=== PATIENT | female | born 1955 | race Caucasian/White ===

== ENCOUNTER 2020-12-13 12:23 | Outpatient (CLI) | payer BC | END 2020-12-13 12:24 | disposition home or self-care (01) | LOC: CSHULT 12:23 | PROVIDERS: ATTEND Urology | DX: N20.0 Calculus of kidney (principal) | CPT/HCPCS: 74018; 76770 ==

== ENCOUNTER 2023-01-30 08:02 | Outpatient (CLI) | payer MEDICARE ==
[2023-01-30] MEDS ORDERED: Iopamidol 300 61% 100 ML VIAL FS ONE (10:21)
== END 2023-01-30 08:03 | disposition home or self-care (01) ==
LOC: CSHCT 08:02
PROVIDERS: ATTEND Obstetrics & Gynecology
DX: R31.9 Hematuria, unspecified (principal); N20.0 Calculus of kidney; N28.9 Disorder of kidney and ureter, unspecified; N85.9 Noninflammatory disorder of uterus, unspecified
CPT/HCPCS: 74178; 82565; Q9967

== ENCOUNTER 2024-01-25 08:20 | Outpatient (CLI) | payer MEDICARE | END 2024-01-25 08:21 | disposition home or self-care (01) | LOC: CSHCT 08:20 | PROVIDERS: ATTEND Urology | DX: N20.0 Calculus of kidney (principal); N28.1 Cyst of kidney, acquired; D25.9 Leiomyoma of uterus, unspecified | CPT/HCPCS: 74178; 82565 ==

== ENCOUNTER 2024-12-13 09:37 | Outpatient (CLI) | payer MEDICARE | END 2024-12-13 09:38 | disposition home or self-care (01) | LOC: CSHMAMMO 09:37 | PROVIDERS: ATTEND Obstetrics & Gynecology | DX: Z78.0 Asymptomatic menopausal state (principal); M81.0 Age-related osteoporosis without current pathological fracture | CPT/HCPCS: 77080 ==